=== PATIENT | male | born 1960 | race Caucasian/White ===

== ENCOUNTER → 2017-04-27 | Outpatient (CLI) | payer OTHER ==
[~2017-04-27] MED LIST: ANTACID650 MG PO; ASPIRIN EC81 M1 PO; CARVEDILOL6.25 MG PO; LANTUS SQ; LIPITOR40 MG PO; NEURONTIN 300M300 M2 PO; NOVOLOG100 UNIT/1; PLAVIX 75 MG TA75 M1 PO
== END ==
LOC: HYPER 04-19 15:30
DX: T81.89XA Other complications of procedures, not elsewhere classified, initial encounter (principal); E11.622 Type 2 diabetes mellitus with other skin ulcer; L97.311 Non-pressure chronic ulcer of right ankle limited to breakdown of skin; E11.22 Type 2 diabetes mellitus with diabetic chronic kidney disease; I12.0 Hypertensive chronic kidney disease with stage 5 chronic kidney disease or end stage renal disease; N18.6 End stage renal disease; F32.9 Major depressive disorder, single episode, unspecified; Z86.73 Personal history of transient ischemic attack (TIA), and cerebral infarction without residual deficits; Z87.891 Personal history of nicotine dependence; Y83.8 Other surgical procedures as the cause of abnormal reaction of the patient, or of later complication, without mention of misadventure at the time of the procedure

== ENCOUNTER → 2017-09-28 | Outpatient (CLI) | payer OTHER ==
[~2017-09-28] MED LIST changes: +AMOXICILLIN 50500 MG PO; +AMPICILLIN 1 GM1 G1 IV; +AZACTAM 1 GM VIA1 G1 IV; +CIPRO500 MG PO; +COREG6.25 MG PO; +DOXYCYCLINE 10100 MG PO; +EPOGEN10000 UNIT SUBQ; +ERGOCALCIF50000 UNIT PO; +FINASTERIDE5 MG PO; +FISH OIL 1,001000 M2 PO; +FOLIC ACID1 MG PO; +FUROSEMIDE 40 M40 M1 PO; +HEPARIN SO1000 UNIT2 SUBQ; +HEPARIN SO5000 UNIT/ SUBQ; +HUMALOG100 UNIT/1 SUBQ; +LASIX 20 MG TAB20 MG PO; +LASIX 40 MG TAB40 M2 PO; +LEVEMIR SUBQ; +LEVEMIR100 UNIT/1 SUBQ; +LEXAPRO20 MG PO; +LOMOTIL TABLET1 EACH PO; +METAXALONE400 MG PO; +METOLAZONE 5 MG5 MG PO; +MIRALAX17 GM PO; +NEPHRO-VITE RX1 TA1 PO; +NEPHROCAPS SOFT1 CAP PO; +NEURONTIN 300300 M1 PO; +NOVOLOG100 UNIT/1 SUBQ; +ONDANSETRON HCL4 M2 PO; +OXYCODONE HCL 55 MG PO; +ZOFRAN ODT4 MG DISSOLVE; +[UNRECOGNIZED DRUG - OTHER]
[2017-09-28 11:43] VITALS: BP 91/40
== END ==
LOC: OPONC 09-27 11:25
DX: R78.81 Bacteremia (principal)
CPT/HCPCS: 95000